=== PATIENT | female | born 1965 | race Caucasian/White ===

== ENCOUNTER 2016-10-11 12:30 | Observation (INO) | payer BC, OTHER ==
[~2016-10-11] VITALS: Ht 167.6 cm; Wt 67.6 kg
--- NOTE | ~2016-10-11 | CATHLAB ---
[facility] [address] [facility] [place] [address] INVASIVE PROCEDURE REPORT Name: ASHLEY LOMELI Room #: 312-P DIS IN M.R.#: [id number] Admission: 10/11/16 Attend Phys: Tj Mazariegos Discharge: 10/12/16 Date of : 61 Date of Service: 10/16/16 1732 Report #: [id number] THIS REPORT FOR: //name// APPROVED REPORT Patient Details Patient Status: In-Patient Room #: The patient is a 51 year-old female Event Personnel Hector Swann [place], Emeli Vivas [place], Ariel RN RN, Mary Bergeron RN Monitor Procedures Performed Art Access - R femoral artery* Left Heart Cath w/or w/o Coronaries [id number] [facility] Hemostasis with Manual pressure Indication Chest pain Risk Factors Family History Procedure Narrative The patient was brought urgently to the Cardiac Catheterization Laboratory and was prepped and draped in a sterile manner. The Right Groin^ was infiltrated with 1% Lidocaine subcutaneous anesthesia. A PINNACLE 4FR Sheath #[id number] sheath was inserted into the RFA^. Coronary angiography was performed using coronary diagnostic catheters. The right coronary system was accessed and visualized with a JR 4 catheter. The left coronary system was accessed and visualized with a JL 4 catheter. The left ventricle was accessed and visualized with a JR 4 catheter. Left ventricular/Aortic Valve gradient assessed via catheter pullback. Hemostasis was obtained with manual pressure following sheath removal without any complications. The patient tolerated the procedure well and there were no complications associated with the procedure. There was no hematoma. Intraoperative Conscious Sedation Sedation start time: 1254 Case end Time: 1305 Versed 2.0 mg Fluoro Time: 1.20 minutes [facility] [place] [address] [place] [address] INVASIVE PROCEDURE REPORT Name: ASHLEY LOMELI Room #: 312-P [facility] ..#: [id number] Admission: 10/11/16 Attend Phys: Tj Mazariegos Discharge: 10/12/16 Date of : 61 Date of Service: 10/16/16 1732 Report #: [id number] Dose: DAP 1067.12 cGycm2 155 mGy Contrast Type and Amount: Omnipaque 35 ml Coronary Angiography The patient's coronary anatomy is right dominant. [place] Artery Percent Stenosis Left Main: 0 % Prox LAD: 0 % Mid/Distal LAD: 0 % Circumflex: 0 % RCA: 0 % Ramus: 0 % Left Ventriculography Left Ventriculography was not performed. Hemodynamics The aortic pressure is 111/63 mmHg with a mean of 80 mmHg. The left ventricular pressure is 111/1 mmHg with a mean of mmHg. The left ventricular end diastolic pressure is 19 mmHg. There was no gradient across the aortic valve upon pullback. Pullback from the left ventricle to the aorta revealed no gradient across the aortic valve. Conclusion 1. NORMAL CORONARY ARTERIES 2. NORMAL HEMODYNAMICS Recommendations Cardiac Risk Reduction Program <ELECTRONICALLY SIGNED> By: Hector Swann MD 10/16/16 [phone] Hector Swann MD /INF
--- NOTE | ~2016-10-11 | EKG ---
[address] [address] ELECTROCARDIOGRAM REPORT Name: ASHLEY LOMELI Room #: 312-P [facility].#: [id number] Admission: 10/11/16 Attend Phys: Bienvenido Panchal MD Discharge: Date of : 61 Report #: [id number] THIS REPORT FOR: //name// [facility] ED Test Date: 2016-10-11 Test Time: 12:33:37 Pat Name: ASHLEY LOMELI Department: Room: [facility] Gender: F Director [place]: Andreia ADEN : 1965 Requested By: Tia Cohen Order Number: [id number] MD: Adonis Mullen Measurements Intervals [place] Rate: 84 P: 55 WV: 157 QRS: 15 QRSD: 87 T: 72 QT: 376 QTc: 445 Interpretive Statements Sinus rhythm No significant abnormality Compared to ECG 03/20/2013 17:25:25 No significant changes Electronically Signed On 10-12-2016 8:21:26 CDT by Adonis Mullen [email or web address] <ELECTRONICALLY SIGNED> By: Adonis Mullen MD, [facility] 10/12/16 0821 D: 06/3 1233 Adonis Mullen MD, FACC /EPI
[~2016-10-11 12:30] MED LIST: ATIVAN1 MG PO; ATORVASTATIN CA40 MG PO; LEXAPRO 10 MG T10 M2 PO; LIPITOR10 MG PO; NAPROSYN500 MG PO; NORCO 5-325 TA1 EACH PO; NORFLEX100 MG PO
[2016-10-11 12:32] VITALS: BP 124/81
[2016-10-11 14:03] LABS: ABSOLUTE NEUTROPHILS 2.2 thou/uL (1.4-8.2); BASOPHILS 2.4 % (0.0-2.0); EOSINOPHILS 1.9 % (0.0-3.0); HEMOGLOBIN 13.6 gm/dL (12.0-15.0); LYMPHOCYTES 33.8 % (24.0-44.0); MCHC 34.1 g/dL (28.0-37.0); MONOCYTES 9.6 % (1.0-8.0); PLATELET COUNT 224 thou/uL (150-400); POLYS 52.3 % (36.0-66.0); RBC 4.55 mil/uL (4.20-5.00); RDW 13.5 % (10.5-14.5); WBC 4.3 thou/uL (4.0-11.0)
[2016-10-11 14:04] LABS: MANUAL DIFF NO
[2016-10-11 14:06] LABS: ANION GAP 8 mmol/L (7-16); BUN 12 mg/dL (7-18); CALCIUM 9.3 mg/dL (8.5-10.1); CHLORIDE 106 mmol/L (98-107); CO2 28 mmol/L (21-32); GLUCOSE 112 mg/dL (74-106); SODIUM 142 mmol/L (136-145)
[2016-10-11 14:18] LABS: NT-PRO BRAIN NAT PEPTIDE 30 pg/mL (<300); TROPONIN-I < 0.04 ng/mL (<0.04-0.07)
[2016-10-11 14:58] VITALS: BP 106/65
[2016-10-11 16:00] VITALS: BP 108/66
[2016-10-11 16:08] LABS: CHOLESTEROL 325 mg/dL (<200); HDL CHOLESTEROL 42 mg/dL (>40); LDL CHOLESTEROL 240 mg/dL (<100); TC:HDL 7.7 Ratio (Not establshd); TRIGLYCERIDE 217 mg/dL (<150); VLDL 43 mg/dL (<40)
[2016-10-11 20:20] VITALS: BP 102/68
[2016-10-12 04:15] VITALS: BP 100/60
[2016-10-12 08:18] VITALS: BP 103/56
[2016-10-12] MEDS ORDERED: LIPITOR80 MG PO (10:31)
[2016-10-12 14:26] VITALS: BP 103/56
== END 2016-10-12 16:10 | disposition home or self-care (01) ==
LOC: ER 12:30 → EROBS 14:35 → 3N 15:06
PROVIDERS: Emergency Medicine; Nurse Practitioner Gerontology
DX: R07.89 Other chest pain (principal); E78.01 Familial hypercholesterolemia; F41.9 Anxiety disorder, unspecified; F32.9 Major depressive disorder, single episode, unspecified; E78.5 Hyperlipidemia, unspecified; Z77.22 Contact with and (suspected) exposure to environmental tobacco smoke (acute) (chronic)

== ENCOUNTER 2018-02-21 18:07 | Emergency (ER) | payer BC, OTHER ==
[~2018-02-21] VITALS: Ht 167.6 cm; Wt 73.5 kg
[2018-02-21 18:07] VITALS: BP 127/72
[~2018-02-21 18:07] MED LIST changes: +LIPITOR80 MG PO
== END 2018-02-21 19:01 | disposition home or self-care (01) ==
LOC: ER 18:07
DX: M14.671 Charcot's joint, right ankle and foot (principal); E78.00 Pure hypercholesterolemia, unspecified; F32.9 Major depressive disorder, single episode, unspecified; F41.9 Anxiety disorder, unspecified; Z77.22 Contact with and (suspected) exposure to environmental tobacco smoke (acute) (chronic); Z88.1 Allergy status to other antibiotic agents; Z88.0 Allergy status to penicillin; Z90.49 Acquired absence of other specified parts of digestive tract

== ENCOUNTER 2021-02-16 19:29 | Emergency (ER) | payer OTHER ==
[~2021-02-16] VITALS: Ht 167.6 cm; Wt 82.6 kg
[2021-02-16 19:49] LABS: URINE BILIRUBIN NEGATIVE (Negative); URINE BLOOD NEGATIVE (Negative); URINE CLARITY CLEAR; URINE COLOR YELLOW; URINE GLUCOSE-RANDOM* NEGATIVE (Negative); URINE KETONES NEGATIVE (Negative); URINE LEUKOCYTES-REFLEX 1+ (Negative); URINE NITRITE-REFLEX NEGATIVE (Negative); URINE PROTEIN (DIPSTICK) NEGATIVE (Negative); URINE UROBILINOGEN 0.2 E.U./dl (0.2-1.0)
[2021-02-16 19:58] LABS: BACTERIA-REFLEX 1-9 Few /HPF (None Seen); CASTS None Seen /LPF (None Seen); CRYSTALS None Seen /LPF (None Seen); SQUAMOUS 4-10 Moderate /LPF (0-3); URINE RBC 1-2 Rare /HPF (NONE SEEN); URINE WBC-REFLEX 6-15 Few /HPF (0-5)
[2021-02-16 20:57] LABS: ABSOLUTE NEUTROPHILS 3.9 thou/uL (1.4-8.2); BASOPHILS 0.7 % (0.0-2.0); EOSINOPHILS 2.3 % (0.0-3.0); HEMATOCRIT 37.6 % (37.0-47.0); HEMOGLOBIN 12.7 gm/dL (12.0-15.0); LYMPHOCYTES 24.1 % (24.0-44.0); MCHC 33.9 g/dL (28.0-37.0); MCV 88.7 fL (80.0-100.0); MONOCYTES 8.8 % (1.0-8.0); PLATELET COUNT 234 thou/uL (150-400); POLYS 64.1 % (36.0-66.0); RBC 4.24 mil/uL (4.20-5.00); RDW 13.1 % (10.5-14.5)
[2021-02-16 21:04] LABS: CREATININE 0.9 mg/dL (0.6-1.0); POTASSIUM 3.7 mmol/L (3.5-5.1)
[2021-02-16 21:10] LABS: TOTAL BILIRUBIN 0.3 mg/dL (0.2-1.0); TOTAL PROTEIN 7.8 g/dL (6.4-8.2)
[2021-02-16] MEDS ORDERED: NAPROSYN500 MG PO (21:25)
[2021-02-16] MEDS ORDERED: SKELAXIN 800 M800 M1 PO (21:25)
[2021-02-16 21:41] VITALS: BP 137/87
== END 2021-02-16 21:42 | disposition home or self-care (01) ==
LOC: ER 19:29
PROVIDERS: Emergency Medicine
DX: R10.31 Right lower quadrant pain (principal); E78.00 Pure hypercholesterolemia, unspecified; F41.9 Anxiety disorder, unspecified; F32.9 Major depressive disorder, single episode, unspecified; F17.210 Nicotine dependence, cigarettes, uncomplicated; Z98.890 Other specified postprocedural states; Z90.89 Acquired absence of other organs; Z79.899 Other long term (current) drug therapy; Z88.1 Allergy status to other antibiotic agents; Z88.0 Allergy status to penicillin